=== PATIENT | female | born 1980 | race Caucasian/White ===

== ENCOUNTER 2018-03-08 19:18 | Emergency (ER) | payer OTHER ==
[~2018-03-08] VITALS: Ht 170.2 cm; Wt 75.8 kg
--- NOTE | 2018-03-08 20:16 | PHYS DOC ---
Past History Past Medical History: Anxiety, Arthritis Past Surgical History: Hip Replacement Alcohol Use: Occasionally Drug Use: None Adult General Chief Complaint Chief Complaint: HAND PROBLEM HPI HPI Patient is a 37 year old female who presents with complaint of left ring finger injury. The patient states she actually tripped and fell forward, catching herself with her left finger. The patient injured the finger and is complaining of significant pain and swelling to the left ring finger PIP joint. The patient was unable to remove her wedding ring prior to onset of swelling. Denies any other injuries. Review of Systems Review of Systems Constitutional: Denies fever or chills [] Musculoskeletal: Pain and swelling the left ring finger[] Integument: Denies rash or skin lesions [] Neurologic: Denies headache, focal weakness or sensory changes [] All other systems were reviewed and found to be within normal limits, except as documented in this note. Allergies Allergies Allergies Coded Allergies Type Severity Reaction Last Updated Verified cefaclor Allergy Intermediate 03/08/18 Yes Penicillins Allergy Mild 03/08/18 Yes Physical Exam Physical Exam Constitutional: Well developed, well nourished, no acute distress, non-toxic appearance. [] HENT: Normocephalic, atraumatic, bilateral external ears normal, oropharynx moist, no oral exudates, nose normal. [] Skin: Warm, dry, no erythema, no rash. [] Back: No tenderness, no CVA tenderness. [] Extremities: Moderate PIP joint swelling at left ring finger, PIP joint is tender to palpation, wedding rings remain proximal to site of injury, no cyanosis, no clubbing, range of motion in left ring finger not tested secondary to pain,, no edema. [] Neurologic: Alert and oriented X 3, normal motor function, normal sensory function, no focal deficits noted. [] Current Patient Data Vital Signs Vital Signs Date Time Temp Pulse Resp B/P (MAP) Pulse Ox O2 Delivery O2 Flow Rate FiO2 03/08/18 19:55 98.9 85 18 100 Room Air 03/08/18 19:45 127/93 (104) Lab Results Not performed EKG EKG Not performed[] Radiology/Procedures Radiology/Procedures 3 view left ring finger x-ray interpreted by me: Small proximal volar avulsion fracture of middle phalanx, normal alignment, moderate soft tissue swelling[] Course & Med Decision Making Course & Med Decision Making Pertinent Labs and Imaging studies reviewed. (See chart for details) Patient's rings were removed by cutting through the band. Patient's finger was abdulkadir taped for treatment in the emergency department. Advised continued use of cold compress and further RICE therapy for treatment. Recommended range of motion in the affected finger as tolerated once swelling improves. Recommended follow-up in one week with primary doctor for reevaluation and return to emergency department for any worsening symptoms. Patient was understanding and in agreement with treatment plan. Dragon Disclaimer Dragon Disclaimer This electronic medical record was generated, in whole or in part, using a voice recognition dictation system. Departure Departure: Impression: Primary Impression: Avulsion fracture of middle phalanx of finger Disposition: HOME, SELF-CARE Condition: IMPROVED Referrals: PCP,UNKNOWN (PCP) Patient Instructions: RICE - Routine Care for Injuries Additional Instructions: Follow-up with your primary doctor in 1 week for reevaluation. Return to emergency department for any worsening symptoms. Scripts Ibuprofen (IBUPROFEN) 600 Mg Tablet 600 MG PO Q6HRS PRN for PAIN, #20 TAB Prov: LISE DAVILA MD 03/08/18 Problem Qualifiers Primary Impression: Avulsion fracture of middle phalanx of finger Encounter type: initial encounter Fracture type: closed Qualified Codes: S62.629A - Displaced fracture of medial phalanx of unspecified finger, initial encounter for closed fracture LISE DAVILA MD Mar 08, 2018 20:16
[2018-03-08] MEDS ORDERED: IBUP600T16 PO (21:14)
[2018-03-08 21:20] VITALS: BP 125/90
--- NOTE | 2018-03-09 07:56 | RAD ---
Examination: 3 views of the left fourth digit HISTORY: History of injury to the left abutting finger from fall COMPARISON: None available Findings/ impression: There is moderate soft tissue swelling identified around the PIP joint of the fourth digit. There is subtle bony density identified volar to the base of the middle phalanx could be soft tissue calcification or subtle avulsion fracture. Electronically signed by: Jb Romano MD (03/09/2018 7:52 AM) [facility]
== END 2018-03-08 21:21 | disposition home or self-care (01) ==
LOC: ER 19:18
DX: S62.623A Displaced fracture of middle phalanx of left middle finger, initial encounter for closed fracture (principal); F41.9 Anxiety disorder, unspecified; M19.90 Unspecified osteoarthritis, unspecified site; Z88.0 Allergy status to penicillin; Z88.1 Allergy status to other antibiotic agents; W01.0XXA Fall on same level from slipping, tripping and stumbling without subsequent striking against object, initial encounter; Y93.89 Activity, other specified; Y92.89 Other specified places as the place of occurrence of the external cause; Y99.8 Other external cause status
CPT/HCPCS: 73140; 99284